=== PATIENT | female | born 1985 | race Two or more races ===

== ENCOUNTER 2021-10-07 14:27 | Emergency (ER) | payer BC ==
[~2021-10-07] VITALS: Ht 154.9 cm; Wt 88.5 kg
[2021-10-07] MEDS ORDERED: QUETIAPINE FUM400 M1 (14:34)
[2021-10-07] MEDS ORDERED: LAMICTAL (GREE1 EACH (14:34)
== END 2021-10-07 17:10 | disposition home or self-care (01) ==
LOC: ER 14:27
DX: N39.0 Urinary tract infection, site not specified (principal); N30.00 Acute cystitis without hematuria